=== PATIENT | male | born 1955 | race Caucasian/White ===

== ENCOUNTER 2017-09-15 11:35 | Observation (INO) | payer OTHER ==
[2017-09-15] MEDS ORDERED: BABY ASPIRIN 81 MG CHEW ONE (12:03)
[2017-09-15] MEDS ORDERED: BABY ASPIRIN 81 MG CHEW PO ONE (12:03)
[2017-09-15 12:07] LABS: BASOPHIL % 0.7 % (0.0-0.4); Eosinophil % 6.5 % (0.00-5.0); Granulocytes % 53.7 % (36.0-66.0); Lymphocytes % 31.2 % (24.0-44.0); Mean Cell Volume 87.2 fl (78-100); Mean Corpuscular Hemoglobin 30.2 pg (26-32); Mean Platelet Volume 10.3 fl (6-9.5); Monocytes % 7.9 % (0.0-12.0); Platelet Count 216 K/mm3 (150-450); Red Blood Count 5.07 M/mm3 (4.1-5.6); Red Cell Distribution Width 13.1 % (11.5-14.0); White Blood Count 7.2 K/mm3 (4.0-10.5)
--- NOTE | 2017-09-15 12:09 | ERPHSYRPT ---
- History of Present Illness Time Seen by Provider: 09/15/17 11:50 Historian: patient Exam Limitations: no limitations Patient Subjective Stated Complaint: pt states he has had chest discomfort with radiation up into jaws and both arms for the past few weeks. pt states he had a cardiac stent placed 10 years ago and 1 year ago had a heart cath with no stents. Triage Nursing Assessment: pt pink, warm, dry. lung sounds clear and equal. breathing wnl. accu check 363. pt is a diabetic. Physician History: 62 y/o male with history of CAD with stent placed 10 years ago and DM comes to the ER with complaints of substernal chest pain for the past 2 weeks. Pt describes the pain as pressure like, 4/10, intermittent with occasional pressure of the jaw and bilateral arms and pt has not taken any pain meds. Pt also admits to shortness of breath, palpitations and occasional dizziness. Pt denies any fever, chills, cough, chest congestion, nausea or vomiting. Pt last had a cardiac cath which did show some blockage but no stent was placed. Timing/Duration: day(s) Activities at Onset: none Quality: pressure Location: substernal Chest Pain Radiation: jaw, arm Severity of Pain-Max: mild Severity of Pain-Current: mild Modifying Factors: Improves With: nothing Associated Symptoms: shortness of breath, dizziness Prior Chest Pain/Cardiac Workup: angina, cardiac cath Nitro Today/Relief: no nitro taken today Aspirin Treatment Today: 81 mg x 2 Allergies/Adverse Reactions: No Known Drug Allergies Allergy (Verified 09/15/17 11:55) Home Medications: Aspirin EC 81 mg [Ecotrin 81 mg] 81 mg PO DAILY 04/16/13 [History] Benazepril HCl 10 mg [Lotensin 10 MG] 10 mg PO DAILY 04/16/13 [History] Levothyroxine Sodium 25 Mcg [Synthroid 25 Mcg] 50 mcg PO DAILY 04/16/13 [ History] Ctg-Txj-Srfzvz/Choli/Bioflavon [[facility] Ear Care Formula Tablet] 1 each PO DAILY [History] Tamsulosin HCl 0.4 mg [Flomax 0.4 MG] 0.4 mg PO DAILY 04/16/13 [History] Insulin Degludec [Tresiba Flextouch U-100] 20 unit SQ DAILY 09/15/17 [History] Insulin Glulisine [Apidra] 5 unit SQ TIDWMEALS 09/15/17 [History] Insulin Glulisine [Apidra] 5 unit SQ UD 09/15/17 [History] Hx Tetanus, Diphtheria Vaccination/Date Given: Yes (up to date) Hx Influenza Vaccination/Date Given: No Hx Pneumococcal Vaccination/Date Given: No Immunizations Up to Date: Yes - Review of Systems Constitutional: No Fever, No Chills Eyes: No Symptoms, No Vision Changes Ears, Nose, & Throat: No Symptoms Respiratory: Dyspnea, No Cough Cardiac: Chest Pain, Palpitations, No Edema, No Syncope Abdominal/Gastrointestinal: No Abdominal Pain, No Nausea, No Vomiting, No Diarrhea Genitourinary Symptoms: No Dysuria Musculoskeletal: No Back Pain, No Neck Pain Skin: No Rash Neurological: Dizziness, No Focal Weakness, No Sensory Changes Psychological: No Symptoms Endocrine: No Symptoms All Other Systems: Reviewed and Negative - Past Medical History Pertinent Past Medical History: Yes Neurological History: No Pertinent History ENT History: No Pertinent History Cardiac History: Coronary Artery Disease, Hypertension Respiratory History: No Pertinent History Endocrine Medical History: Diabetes Type II, Hypothyroidism Musculoskeletal History: Other GI Medical History: GERD, Polyps Psycho-Social History: No Pertinent History Male Reproductive Disorders: Prostate Problems Other Medical History: CARDIAC STENT, L-SPINE FRACTURES 10-15 YEARS AGO - Past Surgical History Past Surgical History: Yes Neuro Surgical History: No Pertinent History Cardiac: Cardiac Catheterization, Cardiac Stent Respiratory: No Pertinent History Gastrointestinal: Other Genitourinary: Other Musculoskeletal: Orthopedic Surgery Male Surgical History: Other Other Surgical History: left knee arthroscopy,states several colon polyps removed - Social History Smoking Status: Light tobacco smoker Exposure to second hand smoke: No Drug Use: none Patient Lives Alone: No - Nursing Vital Signs Nursing Vital Signs: Initial Vital Signs Temperature 98.0 F 09/15/17 11:49 Pulse Rate 96 H 09/15/17 11:49 Respiratory Rate 18 09/15/17 11:49 Blood Pressure 104/69 09/15/17 11:49 O2 Sat by Pulse Oximetry 95 09/15/17 11:49 Pain Scale Pain Intensity 3 - Physical Exam General Appearance: no apparent distress, alert Eye Exam: PERRL/EOMI, eyes nml inspection Ears, Nose, Throat Exam: normal ENT inspection, moist mucous membranes Neck Exam: normal inspection, non-tender, supple, full range of motion Respiratory Exam: normal breath sounds, lungs clear, No respiratory distress Cardiovascular Exam: regular rate/rhythm, normal heart sounds Gastrointestinal/Abdomen Exam: soft, No tenderness, No mass Back Exam: normal inspection, No CVA tenderness, No vertebral tenderness Extremity Exam: normal inspection, normal range of motion Neurologic Exam: alert, oriented x 3, cooperative, normal mood/affect, sensation nml, No motor deficits Skin Exam: normal color, warm, dry SpO2: 95 Oxygen Delivery: Room Air - Course Nursing assessment & vital signs reviewed: Yes EKG Interpreted by Me: RATE, NORMAL AXIS, NORMAL INTERVALS, Non-specific ST Changes (hr 96) Ordered Tests: Active Orders 24 hr Category Date Time Status ACCUCHECK [Accucheck] STAT Care 09/15/17 11:58 Active Courtesy Van Driver STAT Care 09/15/17 11:56 Active EKG-ER Only STAT Care 09/15/17 11:56 Active EKG-ER Only STAT Care 09/15/17 12:00 Active IV Insertion STAT Care 09/15/17 11:56 Active CHEST 2 VIEWS (PA AND LAT) Stat Exams 09/15/17 12:01 Completed CBC W DIFF Stat Lab 09/15/17 12:00 Completed CK-Creatinine Phosphokinase Stat Lab 09/15/17 12:00 Completed CMP Stat Lab 09/15/17 12:00 Completed D-DIMER QUANTITATION Stat Lab 09/15/17 12:00 Completed NT PRO BNP Stat Lab 09/15/17 12:00 Completed PROTIME WITH INR Stat Lab 09/15/17 12:00 Completed PTT Stat Lab 09/15/17 12:00 Completed TROPONIN Q3H Lab 09/15/17 12:00 Completed TROPONIN Q3H Lab 09/15/17 15:15 Ordered TROPONIN Q3H Lab 09/15/17 18:15 Ordered TROPONIN Q3H Lab 09/15/17 21:15 Ordered TROPONIN Q3H Lab 09/16/17 00:15 Ordered Medication Summary Generic Name Dose Route Start Last Admin Trade Name Freq PRN Reason Stop Dose Admin Sodium Chloride 1,000 mls @ 100 mls/hr 09/15/17 12:30 09/15/17 12:32 Sodium Chloride 0.9% 1000 Ml IV 10/15/17 12:29 100 mls/hr .Q10H IZZY Administration Discontinued Medications Generic Name Dose Route Start Last Admin Trade Name Matthias PRN Reason Stop Dose Admin Aspirin 162 mg 09/15/17 12:03 09/15/17 12:16 Baby Aspirin 81 Mg Chew PO 09/15/17 12:04 162 mg STAT ONE Administration Aspirin Confirm 09/15/17 12:03 Baby Aspirin 81 Mg Chew Administered 09/15/17 12:04 Dose 162 mg .ROUTE .STK-MED ONE Insulin Human Regular 5 unit 09/15/17 13:00 09/15/17 13:06 Novolin R IV 09/15/17 13:01 5 unit STAT ONE Administration Lab/Rad Data: Laboratory Result Diagrams 09/15/17 12:00 09/15/17 12:00 Laboratory Results 09/15/17 09/15/17 09/15/17 Range/Units 12:00 12:00 12:00 WBC (4.0-10.5) K/mm3 RBC (4.1-5.6) M/mm3 Hgb (12.5-18.0) gm/dl Hct (42-50) % MCV (78-100) fl MCH (26-32) pg MCHC (32-36) g/dl RDW (11.5-14.0) % Plt Count (150-450) K/mm3 MPV (6-9.5) fl Gran % (36.0-66.0) % Lymphocytes % (24.0-44.0) % Monocytes % (0.0-12.0) % Eosinophils % (0.00-5.0) % Basophils % (0.0-0.4) % Basophils # (0-0.4) INR 0.94 (0.8-3.0) APTT 28.5 (24.1-36.1) SECONDS D-Dimer < 215 (0-500) ng/mL Sodium 135 L (136-145) mEq/L Potassium 4.0 (3.5-5.1) mEq/L Chloride 99 (98-107) mEq/L Carbon Dioxide 26.3 (21-32) mEq/L Anion Gap 13.5 (5-15) MEQ/L BUN 18 (9-20) mg/dL Creatinine 1.22 (0.55-1.30) mg/dl Estimated GFR > 60 ML/MIN Glucose 408 H (70-110) MG/DL Calcium 9.2 (8.5-10.1) mg/dL Total Bilirubin 0.50 (0.2-1.0) mg/dL AST 11 L (15-37) U/L ALT 21 (12-78) U/L Alkaline Phosphatase 71 (46-116) U/L Creatine Kinase 97 (39-308) U/L Troponin I < 0.017 (0.000-0.056) ng/ml NT-Pro-B Natriuret Pep 36 (0-125) pg/ml Serum Total Protein 8.1 (6.4-8.2) gm/dL Albumin 3.9 (3.4-5.0) g/dL 09/15/17 Range/Units 12:00 WBC 7.2 (4.0-10.5) K/mm3 RBC 5.07 (4.1-5.6) M/mm3 Hgb 15.3 (12.5-18.0) gm/dl Hct 44.2 (42-50) % MCV 87.2 (78-100) fl MCH 30.2 (26-32) pg MCHC 34.6 (32-36) g/dl RDW 13.1 (11.5-14.0) % Plt Count 216 (150-450) K/mm3 MPV 10.3 H (6-9.5) fl Gran % 53.7 (36.0-66.0) % Lymphocytes % 31.2 (24.0-44.0) % Monocytes % 7.9 (0.0-12.0) % Eosinophils % 6.5 H (0.00-5.0) % Basophils % 0.7 (0.0-0.4) % Basophils # 0.05 (0-0.4) INR (0.8-3.0) APTT (24.1-36.1) SECONDS D-Dimer (0-500) ng/mL Sodium (136-145) mEq/L Potassium (3.5-5.1) mEq/L Chloride (98-107) mEq/L Carbon Dioxide (21-32) mEq/L Anion Gap (5-15) MEQ/L BUN (9-20) mg/dL Creatinine (0.55-1.30) mg/dl Estimated GFR ML/MIN Glucose (70-110) MG/DL Calcium (8.5-10.1) mg/dL Total Bilirubin (0.2-1.0) mg/dL AST (15-37) U/L ALT (12-78) U/L Alkaline Phosphatase (46-116) U/L Creatine Kinase (39-308) U/L Troponin I (0.000-0.056) ng/ml NT-Pro-B Natriuret Pep (0-125) pg/ml Serum Total Protein (6.4-8.2) gm/dL Albumin (3.4-5.0) g/dL - Progress Progress: improved Progress Note: 09/15/17 13:00 Pt is a high risk patient with recent chest pain and a cath done 1-2 years ago that showed 60% blockage. The EKG does not show any acute findings and the first troponin is negative. The d-dimer is negative. The CXR is unremarkable. Pt took ASA 162mg PO and will receive additional 162mg PO. 09/15/17 13:07 Pt has been admitted to Dr Steele for chest pain. - Departure Time of Disposition: 13:07 Departure Disposition: In-patient Admission Clinical Impression: Chest pain Qualifiers: Chest pain type: unspecified Qualified Code(s): R07.9 - Chest pain, unspecified Condition: Stable Critical Care Time: No Referrals: JHOAN BRANDON [Primary Care Provider] -
[2017-09-15 12:30] LABS: INR 0.94 (0.8-3.0); PROTIME 10.4 SECONDS (8.83-12.87)
[2017-09-15 12:32] LABS: PTT 28.5 SECONDS (24.1-36.1)
[2017-09-15] MEDS: Sodium Chloride 0.9% 1000 ML 1,000 ML IV SCH ×2 (12:32→18:28)
[2017-09-15 12:35] LABS: ALBUMIN 3.9 g/dL (3.4-5.0); ALKALINE PHOSPHATASE 71 U/L (46-116); ANION GAP 13.5 MEQ/L (5-15); BLOOD UREA NITROGEN 18 mg/dL (9-20); CHLORIDE 99 mEq/L (98-107); Carbon Dioxide 26.3 mEq/L (21-32); Glucose 408 MG/DL (70-110); SGOT/AST 11 U/L (15-37); SGPT/ALT 21 U/L (12-78); SODIUM 135 mEq/L (136-145); Total Protein 8.1 gm/dL (6.4-8.2)
--- NOTE | 2017-09-15 12:48 | XRAY ---
Indication: Chest pain. Comparison: February 25, 2017. PA/lateral chest unchanged again hyperinflated and clear. Heart is not enlarged. Descending aorta remains tortuous. Bony thorax intact again with minimal thoracic compression deformities. No new/acute findings. Impression: Stable nonacute hyperinflated chest with chronic features.
[2017-09-15] MEDS ORDERED: NovoLIN R IV ONE (13:00)
[2017-09-15] MEDS ORDERED: NovoLIN R ONE (13:06)
[2017-09-15] MEDS ORDERED: MILK OF MAGNESIA 30 ML PO PRN (13:08)
[2017-09-15] MEDS ORDERED: TYLENOL 325 MG PO PRN (13:08)
[2017-09-15] MEDS ORDERED: Zofran 4 MG/2 ML VIAL IV PRN (13:08)
[2017-09-15] MEDS ORDERED: Senokot-S Tablet PO PRN (13:08)
[2017-09-15] MEDS ORDERED: MAALOX ES 30 ML UNIT DOSE PO PRN (13:08)
[2017-09-15] MEDS ORDERED: ULTRAM 50 MG PO PRN (15:23)
[2017-09-15] MEDS ORDERED: MEDICATION INTERVENTION MC PRN (15:35)
[2017-09-15] MEDS: NEURONTIN 300 MG PO SCH ×2 (16:36→20:03)
[2017-09-15] MEDS: NovoLOG Insulin SQ PRN ×2 (16:37→22:30)
[2017-09-15] MEDS: NovoLOG Insulin SQ SCH (16:37)
--- NOTE | 2017-09-15 17:22 | PCM.HP ---
History of Present Illness - Chief Complaint Chief Complaint: chest pain r/o History of Present Illness: is a 62 year old male who presented to the ER today with complaints of substernal chest "discomfort", aching in nature 02/03. Has had 3 episodes in the last 2-3 weeks of chest pain with radiation to the jaw and both arms, had some minor dyspnea. no nausea, vomiting or diaphoresis. Hx of CAD with stent x [address] Valdes, had a heart cath about 18 months ago with no intervention according to patient. - Review of Systems Constitutional: No Fever, No Chills Respiratory: No Cough, No Short Of Breath Cardiac: Chest Pain, No Edema, No Palpitations, No Syncope Abdominal/Gastrointestinal: No Abdominal Pain, No Nausea, No Vomiting, No Diarrhea Skin: No Rash All Other Systems: Reviewed and Negative Medications & Allergies Home Medications: Home Medication List Aspirin EC 81 mg [Ecotrin 81 mg] 81 mg PO HS 04/16/13 [History Confirmed 09/15/17] Benazepril HCl 10 mg [Lotensin 10 MG] 10 mg PO DAILY 04/16/13 [History Confirmed 09/15/17] Tamsulosin HCl 0.4 mg [Flomax 0.4 MG] 0.4 mg PO DAILY 04/16/13 [History Confirmed 09/15/17] Empagliflozin [Jardiance] 2 tab PO QAM 09/15/17 [History Confirmed 09/15/17] Gabapentin [Neurontin] 300 mg PO TID 09/15/17 [History Confirmed 09/15/17] Insulin Degludec [Tresiba Flextouch U-200] 20 unit SQ QAM 09/15/17 [History Confirmed 09/15/17] Insulin Glulisine [Apidra] 5 unit SQ TID 09/15/17 [History Confirmed 09/15/17] Levothyroxine Sodium [Synthroid] 75 mcg PO QAM 09/15/17 [History Confirmed 09/15] Multivitamin [Multi-Vitamin Daily] 1 each PO DAILY 09/15/17 [History Confirmed 09/15/17] Omeprazole 20 MG [Prilosec 20 mg] 20 mg PO HS 09/15/17 [History Confirmed ] Rosuvastatin Calcium [Crestor] 10 mg PO DAILY 09/15/17 [History Confirmed ] Tramadol HCl 50 mg [Ultram 50 mg] 50 mg PO Q8HPRN PRN MDD pain 09/15/17 [ History Confirmed 09/15/17] Allergies/Adverse Reactions: Allergies Allergy/AdvReac Type Severity Reaction Status Date / Time No Known Drug Allergies Allergy Verified 09/15/17 13:41 - Past Medical History Past Medical History: Yes Neurological History: No Pertinent History ENT History: No Pertinent History Cardiac History: Coronary Artery Disease, Hypertension Respiratory History: No Pertinent History Endocrine Medical History: Diabetes Type II, Hypothyroidism Musculoskelatal History: Other GI Medical History: GERD, Polyps Pyscho-Social History: No Pertinent History Male Reproductive Disorders: Prostate Problems Comment: CARDIAC STENT, L-SPINE FRACTURES 10-15 YEARS AGO - Past Surgical History Past Surgical History: Yes Neuro Surgical History: No Pertinent History Cardiac History: Cardiac Catheterization, Cardiac Stent Respiratory Surgery: No Pertinent History GI Surgical History: Other Genitourinary Surgical Hx: Other Musculskeletal Surgical Hx: Orthopedic Surgery Male Surgical History: Other Other Surgical History: left knee arthroscopy,states several colon polyps removed - Social History Smoking Status: Former smoker Exposure to second hand smoke: No Alcohol: None Drug Use: none - Physical Exam Vital Signs: Vital Signs - 24 hr Temp Pulse Resp BP Pulse Ox 09/15/17 16:00 98.0 F 74 18 122/70 92 L 09/15/17 14:45 97.6 F 83 18 111/75 94 L 09/15/17 13:34 97.6 F 83 111/75 09/15/17 13:30 97.6 F 83 18 111/75 94 L 09/15/17 13:10 111 H 18 110/74 18 L 09/15/17 13:08 95 09/15/17 12:37 92 H 16 118/73 09/15/17 11:49 98.0 F 96 H 18 104/69 95 General Appearance: no apparent distress, alert Neurologic Exam: alert, oriented x 3, cooperative, normal mood/affect, nml cerebellar function, nml station & gait, sensation nml, No motor deficits Eye Exam: PERRL/EOMI, eyes nml inspection Respiratory Exam: normal breath sounds, lungs clear, No respiratory distress Cardiovascular Exam: regular rate/rhythm, normal heart sounds, normal peripheral pulses Gastrointestinal/Abdomen Exam: soft, normal bowel sounds, No tenderness, No mass Extremity Exam: normal inspection, normal range of motion, pelvis stable Results - Labs Lab/Micro Results: Lab Results-Last 24 Hours 09/15/17 09/15/17 Range/Units 15:38 Unknown Hemoglobin A1c 9.4 H (4.5-6.2) Troponin I < 0.017 (0.000-0.056) ng/ml - Other Procedures and Tests Respiratory Therapy 09/15/17 20:00 EKG ONCE 09/17/17 05:00 EKG ONCE 09/18/17 05:00 EKG ONCE Assessment/Plan (1) Coronary artery disease Current Visit: Yes Status: Acute Assessment & Plan: troponin neg x 2, EKG no acute changes. will r/o [place] and likely refer back to [facility] for followup Code(s): I25.10 - ATHSCL HEART DISEASE OF [place] CORONARY ARTERY W/O ANG PCTRS (2) Diabetes mellitus type 2, uncontrolled Current Visit: Yes Status: Acute Assessment & Plan: on SSI now, discussed need for better glucose control Code(s): E11.65 - TYPE 2 DIABETES MELLITUS WITH HYPERGLYCEMIA (3) Chest pain Current Visit: Yes Status: Acute Qualifiers: Chest pain type: unspecified Qualified Code(s): R07.9 - Chest pain, unspecified Code(s): R07.9 - CHEST PAIN, UNSPECIFIED
[2017-09-15] MEDS ORDERED: MORPHINE SULFATE 4 MG INJ IV PRN (17:23)
[2017-09-15] MEDS ORDERED: Nitrostat 0.4 MG Tablet SL PRN (17:23)
[2017-09-15] MEDS ORDERED: INSULIN GLULISINE 5 UNIT SQ SCH (22:00)
[2017-09-15] MEDS ORDERED: NON-FORMULARY ITEM (Omeprazole 20 Mg [Prilosec 20 Mg] 20 MG) PO SCH (22:00)
[2017-09-15] MEDS ORDERED: ECOTRIN 81 MG PO SCH (22:00)
[2017-09-15] MEDS ORDERED: Protonix 40MG Tablet PO SCH (22:00)
[2017-09-16] MEDS: Sodium Chloride 0.9% 1000 ML 1,000 ML IV SCH (03:37)
[2017-09-16 07:07] VITALS: BP 120/67; PULSE 56; O2SAT 97
[2017-09-16] MEDS: NovoLOG Insulin SQ PRN (08:07)
[2017-09-16] MEDS: NovoLOG Insulin SQ SCH (08:07)
[2017-09-16] MEDS: NEURONTIN 300 MG PO SCH (09:16)
--- NOTE | 2017-09-16 09:18 | PCM.DS ---
Discharge Summary Date of Admission: 09/15/17 13:23 Admitting Physician: MADDY MORENO Primary Care Provider: JHOAN STANFORD Allergies Allergies No Known Drug Allergies Allergy (Verified 09/15/17 13:41) Hospital Summary - Hospital Course Hospital Course: Pt admitted with chest pain radiating to the neck, is diabetic with hx CAD, sees Dr. Valdes. He is feeling good this morning, all troponins are negative. He plans to f/u with Dr. Valdes outpatient. Will continue to see Dr. Stanford for his diabetes. - Vitals & Intake/Output Vital Signs: Vital Signs Temperature 97.6 F 09/16/17 07:06 Pulse Rate 56 L 09/16/17 07:06 Respiratory Rate 18 09/16/17 07:06 Blood Pressure 120/67 09/16/17 07:06 O2 Sat by Pulse Oximetry 97 09/16/17 07:06 Intake & Output: Intake & Output 09/13/17 09/14/17 09/15/17 09/16/17 11:59 11:59 11:59 11:59 Intake Total 1711 Output Total 2120 Balance -409 Weight 90.832 kg - Lab Result Diagrams: 09/15/17 12:00 09/15/17 12:00 Lab Results-Last 24 Hrs: Accuchecks Date 09/15/17 Time 22:00 Accucheck Value: 262 Lab Results-Last 24 Hours 09/15/17 09/15/17 09/15/17 Range/Units 15:38 18:19 21:14 Hemoglobin A1c (4.5-6.2) Troponin I < 0.017 < 0.017 < 0.017 (0.000-0.056) ng/ml Triglycerides (30-200) mg/dL Cholesterol (100-200) mg/dL LDL Cholesterol (5-99) mg/dL HDL Cholesterol (35-60) mg/dL Heart Disease Risk Ratio 09/15/17 09/16/17 09/16/17 Range/Units Unknown 00:30 05:31 Hemoglobin A1c 9.4 H (4.5-6.2) Troponin I < 0.017 (0.000-0.056) ng/ml Triglycerides 143 (30-200) mg/dL Cholesterol 138 (100-200) mg/dL LDL Cholesterol 90 (5-99) mg/dL HDL Cholesterol 31 L (35-60) mg/dL Heart Disease Risk Ratio 4.5 Micro Results-Entire Visit: Accuchecks Date 09/15/17 Time 22:00 Accucheck Value: 262 - Procedures and Test Procedures and Tests throughout Hospitalization: Therapy Orders & Screens 09/15/17 20:00 EKG ONCE Comment: 09/16/17 05:00 EKG ROUTINE Comment: Diagnosis: chest pain r/o 09/17/17 05:00 EKG ONCE Comment: 09/18/17 05:00 EKG ONCE Comment: Discharge Exam General Appearance: no apparent distress, alert Neurologic Exam: oriented x 3, cooperative Skin Exam: normal color, warm, dry Respiratory Exam: normal breath sounds, lungs clear, No crackles/rales, No rhonchi, No wheezing Cardiovascular Exam: regular rate/rhythm, normal heart sounds, No murmur Extremity Exam: No pedal edema, No swelling Back Exam: normal inspection Final Diagnosis/Problem List - Final Discharge Diagnosis/Problem (1) Chest pain Current Visit: Yes Status: Acute Assessment & Plan: [place] ruled out. D/c home. F/u with Dr. Valdes. (2) Coronary artery disease Current Visit: Yes Status: Chronic (3) Diabetes mellitus type 2, uncontrolled Current Visit: Yes Status: Chronic Assessment & Plan: F/u with dr. Stanford in 1-2 weeks. - Discharge Disposition: Home, Self-Care Condition: Stable Prescriptions: New Nitroglycerin 0.4 mg Tablet [Nitrostat 0.4 MG Tablet] 0.4 mg SL Q5MIN PRN MR X 3 PRN #1 bottle PRN Reason: Chest Pain Continue Aspirin EC 81 mg [Ecotrin 81 mg] 81 mg PO HS Tamsulosin HCl 0.4 mg [Flomax 0.4 MG] 0.4 mg PO DAILY Benazepril HCl 10 mg [Lotensin 10 MG] 10 mg PO DAILY Insulin Glulisine [Apidra] 5 unit SQ TID Insulin Degludec [Tresiba Flextouch U-200] 20 unit SQ QAM Levothyroxine Sodium [Synthroid] 75 mcg PO QAM Tramadol HCl 50 mg [Ultram 50 mg] 50 mg PO Q8HPRN PRN MDD pain PRN Reason: back Rosuvastatin Calcium [Crestor] 10 mg PO DAILY Gabapentin [Neurontin] 300 mg PO TID Empagliflozin [Jardiance] 2 tab PO QAM Omeprazole 20 MG [Prilosec 20 mg] 20 mg PO HS Multivitamin [Multi-Vitamin Daily] 1 each PO DAILY Follow up with: JHOAN STANFORD [Primary Care Provider] -
[2017-09-16] MEDS ORDERED: EMPAGLIFLOZIN PO SCH (10:00)
[2017-09-16] MEDS ORDERED: ZOCOR 20MG PO SCH (10:00)
[2017-09-16] MEDS ORDERED: INSULIN DEGLUDEC 20 UNIT SQ SCH (10:00)
[2017-09-16] MEDS ORDERED: Lotensin 10 MG PO SCH (10:00)
[2017-09-16] MEDS ORDERED: NON-FORMULARY ITEM (Multivitamin [Multi-Vitamin Daily] 1 EACH) PO SCH (10:00)
[2017-09-16] MEDS ORDERED: Lantus Insulin SQ SCH (10:00)
[2017-09-16] MEDS ORDERED: Flomax 0.4 MG PO SCH (10:00)
[2017-09-16] MEDS ORDERED: SYNTHROID 75 MCG PO SCH (10:00)
[2017-09-16] MEDS ORDERED: THERAGRAN MULTIVITAMIN PO SCH (10:00)
[2017-09-16] MEDS ORDERED: NON-FORMULARY ITEM (Rosuvastatin Calcium [Crestor] 10 MG) PO SCH (10:00)
[2017-09-16] MEDS ORDERED: Ecotrin 325 MG PO SCH (10:00)
== END 2017-09-16 10:59 | disposition home or self-care (01) ==
LOC: ED 11:35 → MED SURG 13:23
PROVIDERS: ADMIT Family Medicine; ATTEND Family Medicine
DX: R07.9 Chest pain, unspecified (principal); I25.10 Atherosclerotic heart disease of native coronary artery without angina pectoris; E11.65 Type 2 diabetes mellitus with hyperglycemia; Z79.4 Long term (current) use of insulin; Z79.899 Other long term (current) drug therapy; I10 Essential (primary) hypertension; E03.9 Hypothyroidism, unspecified; K21.9 Gastro-esophageal reflux disease without esophagitis
CPT/HCPCS: 36000; 36415; 71020; 80053; 80061; 82550; 82962; 83036; 83721; 83880; 84484; 85025; 85379; 85610; 85730; 93005; 93041; 93268; 96374; 99285; G0378; A9270-GY

== ENCOUNTER → 2022-09-25 | Day surgery (SDC) | payer OTHER | LOC: SDC-PAIN 14:57 | PROVIDERS: ATTEND Psychiatry & Neurology Pain Medicine | DX: R73.9 Hyperglycemia, unspecified (principal); Z53.8 Procedure and treatment not carried out for other reasons | CPT/HCPCS: 82947 ==

== ENCOUNTER 2024-04-07 08:48 | Day surgery (SDC) | payer OTHER ==
[2024-04-07] MEDS ORDERED: Versed 2 MG/2 ML Injection ONE (10:13)
[2024-04-07] MEDS ORDERED: DIPRIVAN 200 MG/20 ML IV ONE (10:13)
--- NOTE | 2024-04-07 11:32 | XRAY ---
Indication: Bilateral L4-S1 MBB. Intraoperative fluoroscopy provided for 13 seconds. Single digital spot image submitted for interpretation demonstrates posterior needle tips projecting over the expected left and right L4-S1 nerve roots. Correlate with intraoperative findings/report.
--- NOTE | 2024-04-07 13:15 | XRAY ---
13 seconds of fluoroscopy was used in surgery for a bilateral L4-S1 MBB.
[2024-04-07] MEDS ORDERED: Lactated Ringers 1,000 ML IV ONE (15:02)
== END 2024-04-07 10:50 | disposition home or self-care (01) ==
LOC: SDC-PAIN 08:48
PROVIDERS: ATTEND Psychiatry & Neurology Pain Medicine
DX: M47.816 Spondylosis without myelopathy or radiculopathy, lumbar region (principal); E11.9 Type 2 diabetes mellitus without complications
CPT/HCPCS: 64493; 64494; 72020; 77002; 82947; J2250; J2704

== ENCOUNTER 2024-05-19 06:48 | Day surgery (SDC) | payer OTHER ==
[2024-05-19] MEDS ORDERED: Depo-Medrol 40 MG/ML IM ONE (06:49)
[2024-05-19] MEDS ORDERED: BUPIVACAINE 0.5% VIAL IJ ONE (06:49)
[2024-05-19] MEDS ORDERED: DIPRIVAN 200 MG/20 ML IV ONE (08:43)
[2024-05-19] MEDS ORDERED: Lactated Ringers 1,000 ML IV ONE (10:52)
--- NOTE | 2024-05-19 10:58 | XRAY ---
Indication: Bilateral L4-S1 MBB. Intraoperative fluoroscopy provided for 10 seconds. Single digital spot image submitted for interpretation demonstrates posterior needle tips projecting over the expected left and right L4-S1 nerve roots. Correlate with intraoperative findings/report.
--- NOTE | 2024-05-19 11:45 | XRAY ---
10 seconds of fluoroscopy was used in surgery for a bilateral L4-S1 MBB.
== END 2024-05-19 09:07 ==
LOC: SDC-PAIN 06:48
PROVIDERS: ATTEND Psychiatry & Neurology Pain Medicine
DX: M47.816 Spondylosis without myelopathy or radiculopathy, lumbar region (principal); E11.9 Type 2 diabetes mellitus without complications
CPT/HCPCS: 64493; 64494; 72020; 77002; 82947; J2704

== ENCOUNTER 2024-06-09 09:31 | Day surgery (SDC) | payer OTHER ==
[2024-06-09] MEDS ORDERED: LIDOCAINE HCL 1% 50 MG/5 ML VL PF IJ ONE (09:32)
[2024-06-09] MEDS ORDERED: Depo-Medrol 40 MG/ML IM ONE (09:32)
[2024-06-09] MEDS ORDERED: BUPIVACAINE 0.5% VIAL IJ ONE (09:32)
[2024-06-09] MEDS ORDERED: DIPRIVAN 200 MG/20 ML IV ONE (11:21)
--- NOTE | 2024-06-09 11:50 | XRAY ---
Indication: Right L4-S1 RFA. Intraoperative fluoroscopy provided for 13 seconds. 4 digital spot image submitted for interpretation demonstrates posterior needle tips projecting over the expected right L4-S1 nerve roots. Correlate with intraoperative findings/report.
[2024-06-09] MEDS ORDERED: Lactated Ringers 1,000 ML IV ONE (12:50)
--- NOTE | 2024-06-09 13:35 | XRAY ---
13 seconds of fluoroscopy was used in surgery for a right L4-S1 RFA.
== END 2024-06-09 11:57 | disposition home or self-care (01) ==
LOC: SDC-PAIN 09:31
PROVIDERS: ATTEND Psychiatry & Neurology Pain Medicine
DX: M47.816 Spondylosis without myelopathy or radiculopathy, lumbar region (principal); E11.9 Type 2 diabetes mellitus without complications
CPT/HCPCS: 64635; 64636; 72100; 77002; 82947; J2001; J2704

== ENCOUNTER 2024-06-16 09:40 | Day surgery (SDC) | payer OTHER ==
[2024-06-16] MEDS ORDERED: LIDOCAINE HCL 1% 50 MG/5 ML VL PF IJ ONE (09:41)
[2024-06-16] MEDS ORDERED: Depo-Medrol 40 MG/ML IM ONE (09:41)
[2024-06-16] MEDS ORDERED: BUPIVACAINE 0.5% VIAL IJ ONE (09:41)
[2024-06-16] MEDS ORDERED: DIPRIVAN 200 MG/20 ML IV ONE (11:38)
--- NOTE | 2024-06-16 12:44 | XRAY ---
Indication: Left L4-S1 RFA. Intraoperative fluoroscopy provided for 26 seconds. 3 digital spot images submitted for interpretation demonstrates posterior needle tips projecting over the expected left L4-S1 nerve roots. Correlate with intraoperative findings/report.
[2024-06-16] MEDS ORDERED: Lactated Ringers 1,000 ML IV ONE (13:13)
--- NOTE | 2024-06-16 14:37 | XRAY ---
26 seconds of fluoroscopy was used in surgery for a left L4-S1 RFA.
== END 2024-06-16 12:10 ==
LOC: SDC-PAIN 09:40
PROVIDERS: ATTEND Psychiatry & Neurology Pain Medicine
DX: M47.816 Spondylosis without myelopathy or radiculopathy, lumbar region (principal)
CPT/HCPCS: 64635; 64636; 72100; 77002; 82947; J2001; J2704